=== PATIENT | female | born 1960 | race Caucasian/White ===

== ENCOUNTER 2017-12-15 03:43 | Emergency (ER) | payer MEDICARE ==
[~2017-12-15] VITALS: Ht 165.1 cm; Wt 59.0 kg
[2017-12-15] MEDS ORDERED: Zoloft25 MG PO (03:53)
[2017-12-15] MEDS ORDERED: ZOLP10 PO (03:54)
[2017-12-15] MEDS ORDERED: LEVSOD50 PO (03:56)
[2017-12-15] MEDS ORDERED: Synthroid25 MCG PO (03:57)
[2017-12-15 04:05] LABS: Calcium, Ionized (POC) 1.16 mmol/L (1.10-1.46); Chloride (POC) 106 mmol/L (98-108); Creatinine (POC) 0.7 mg/dL (0.6-1.0); Glucose (ISTAT POC) 89 mg/dL (70-99); Hemoglobin (POC) 14.6 g/dL (12.0-16.0); Potassium (POC) 3.3 mmol/L (3.5-5.5); Sodium (POC) 142 mmol/L (135-148); Total CO2 (POC) 23 mmol/L (21-32)
== END 2017-12-15 05:10 | disposition home or self-care (01) ==
LOC: ER 03:43
PROVIDERS: Emergency Medicine
DX: G89.29 Other chronic pain (principal); M25.562 Pain in left knee; M25.561 Pain in right knee; F17.210 Nicotine dependence, cigarettes, uncomplicated; F41.9 Anxiety disorder, unspecified; Z88.5 Allergy status to narcotic agent; Z79.899 Other long term (current) drug therapy
CPT/HCPCS: 80047; 85014; 96372; 99283; J1885